=== PATIENT | female | born 2000 | race Caucasian/White ===

== ENCOUNTER 2025-03-14 02:21 | Emergency (ER) | payer SELFPAY ==
[2025-03-14] MEDS ORDERED: Lidocaine 1% w/Epinephrine 1:100K 20 ML VIAL ONE (04:53)
== END 2025-03-14 07:28 | disposition home or self-care (01) ==
LOC: ERS 02:21
DX: S91.312A Laceration without foreign body, left foot, initial encounter (principal); W45.8XXA Other foreign body or object entering through skin, initial encounter; Y93.01 Activity, walking, marching and hiking; Y92.096 Garden or yard of other non-institutional residence as the place of occurrence of the external cause
CPT/HCPCS: 12002; 99283